=== PATIENT | male | born 1965 | race Caucasian/White ===

== ENCOUNTER 2023-10-24 10:08 | Outpatient (RCR) | payer OTHER, SELFPAY ==
[2023-10-11 14:45] VITALS: BP 123/70
[2023-10-11 15:25] VITALS: BP 115/73
[2023-10-11 15:30] VITALS: BP 127/81
[2023-10-24 10:15] VITALS: BP 132/83
[2023-10-24 10:40] VITALS: BP 133/78
[2023-10-24 10:45] VITALS: BP 139/79
== END 2023-10-24 14:56 | disposition home or self-care (01) ==
LOC: OID 10:08
PROVIDERS: ATTENDING PHYSICIAN Internal Medicine Gastroenterology; FAMILY PHYSICIAN Internal Medicine
DX: E83.110 Hereditary hemochromatosis (principal)
CPT/HCPCS: 99195

== ENCOUNTER 2023-11-08 14:33 | Outpatient (RCR) | payer OTHER, SELFPAY ==
[2023-11-08 14:50] VITALS: BP 137/81
[2023-11-08 15:15] VITALS: BP 105/70
[2023-11-08 15:20] VITALS: BP 115/67
== END 2023-12-05 23:59 | disposition home or self-care (01) ==
LOC: OID 14:33
PROVIDERS: ATTENDING PHYSICIAN Internal Medicine Gastroenterology; FAMILY PHYSICIAN Internal Medicine
DX: E83.110 Hereditary hemochromatosis (principal)
CPT/HCPCS: 99195